=== PATIENT | male | born 1955 ===

== ENCOUNTER 2019-01-19 05:38 | Inpatient (IN) | payer BC, OTHER ==
[2019-01-19] MEDS ORDERED: Sodium Chloride 0.9% 1,000 ML IV STA ×2 (06:39→09:35)
--- NOTE | 2019-01-19 06:47 | ED PDOC ---
HPI: Abdomen Time Seen by Provider: 01/19/19 06:10 Chief Complaint (Nursing): Abdominal Pain Chief Complaint (Provider): Abdominal Pain History Per: Patient History/Exam Limitations: no limitations Onset/Duration Of Symptoms: Days (x3) Location Of Pain/Discomfort: Diffuse Associated Symptoms: Fever, Nausea, Vomiting, Diarrhea Additional Complaint(s): 63 years old male with history of hypertension and high cholesterol presents to ER for evaluation of nausea, vomiting, diarrhea and abdominal pain onset 3 days ago. Patient reports having an average of 3 episodes of each of watery diarrhea and non bloody, non bilious vomiting. He states he felt warm and thought he had a fever but never checked his temperature. Patient reports yesterday he was starting to improve but in the evening symptoms came back. He reports diffused abdominal pain but mostly in the upper abdomen. Patient states he has not drank in weeks and denies any abdominal surgeries. PMD: Kelly Wheeler Past Medical History Reviewed: Historical Data, Nursing Documentation, Vital Signs Vital Signs: Last Vital Signs Temp 99.0 F 01/19/19 05:51 Pulse 142 H 01/19/19 05:51 Resp 17 01/19/19 05:51 BP 111/62 01/19/19 05:51 Pulse Ox 97 01/19/19 05:51 - Medical History PMH: HTN, Hypercholesterolemia - Surgical History Surgical History: No Surg Hx - Family History Family History: States: Unknown Family Hx - Social History Current smoker - smoking cessation education provided: No (Former) Alcohol: Occasional Drugs: Denies - Immunization History Hx Tetanus Toxoid Vaccination: No - Home Medications Home Medications: Ambulatory Orders Medication Instructions Recorded Ibuprofen [Motrin] 600 mg PO Q6 PRN #20 tab 07/24/18 Sulfamethoxazole/Trimethoprim 1 tab PO BID #20 tab 07/24/18 [Bactrim DS 800 mg-160 mg] - Allergies Allergies/Adverse Reactions: Allergies Allergy/AdvReac Type Severity Reaction Status Date / Time No Known Allergies Allergy Verified 06/03/15 14:52 Review of Systems ROS Statement: Except As Marked, All Systems Reviewed And Found Negative Constitutional: Positive for: Fever Gastrointestinal: Positive for: Nausea, Vomiting, Abdominal Pain, Diarrhea Physical Exam - Reviewed Nursing Documentation Reviewed: Yes Vital Signs Reviewed: Yes - Physical Exam Appears: Positive for: Well, No Acute Distress Head Exam: Positive for: ATRAUMATIC, NORMOCEPHALIC Skin: Positive for: Normal Color, Warm, Dry Eye Exam: Positive for: Normal appearance, EOMI, PERRL ENT: Positive for: Other (Dry mucous membrane) Neck: Positive for: Normal, Painless ROM, Supple Cardiovascular/Chest: Positive for: Tachycardia Respiratory: Positive for: Normal Breath Sounds. Negative for: Respiratory Distress Gastrointestinal/Abdominal: Positive for: Normal Exam, Soft. Negative for: Tenderness, Guarding, Rebound Back: Positive for: Normal Inspection. Negative for: L CVA Tenderness, R CVA Tenderness Extremity: Positive for: Normal ROM. Negative for: Pedal Edema, Deformity Neurological/Psych: Positive for: Awake, Alert, Oriented (x3) - ECG O2 Sat by Pulse Oximetry: 97 (RA) Pulse Ox Interpretation: Normal Medical Decision Making Medical Decision Making: Time: 627 A/P: Abdominal pain with subjective fever --Differential includes but not limited to gastroenteritis, diverticulitis, colitis and appendicitis --VBG --ABD/Pelvis CT --EKG --CMP --Lipase --Urine dipstick --CBC --Zofran 4 mg IVP ---Blood culture --Urine culture --Urinalysis 0700 Patient signed out to Dr. Spaulding, pending labs and CT. Scribe Attestation: Documented by Alyce Salcedo, acting as a scribe for Sigifredo Calvo MD. Provider Scribe Attestation: All medical record entries made by the Scribe were at my direction and personally dictated by me. I have reviewed the chart and agree that the record accurately reflects my personal performance of the history, physical exam, medical decision making, and the department course for this patient. I have also personally directed, reviewed, and agree with the discharge instructions and disposition. Disposition - Clinical Impression Clinical Impression: Gastroenteritis - Patient ED Disposition Is Patient to be Admitted: Transfer of Care - Disposition Referrals: Kelly Wheeler MD [Primary Care Provider] - Disposition: Transfer of Care Disposition Time: 07:00 Condition: STABLE Forms: [employer] (Urdu) Patient Signed Over To: Kylah Spaulding (pending CT and labs)
[2019-01-19 07:17] LABS: VENOUS BLOOD GAS BASE EXCESS -1.8 mmol/L (0.0-2.0); VENOUS BLOOD GAS PCO2 35 mmHg (40-60); VENOUS BLOOD GAS PO2 42 mm/Hg (30-55); VENOUS BLOOD PH 7.41 (7.32-7.43)
[2019-01-19 07:39] LABS: BASO % 0.2 % (0.0-2.0); EOS % 0.1 % (0.0-4.0); LYMPH # 0.2 K/uL (1.0-4.3); LYMPH % 5.9 % (20.0-40.0); MEAN CELL VOLUME 90.3 fl (80.0-94.0); MEAN CORPUSCULAR HEMOGLOBIN 30.2 pg (27.0-31.0); MEAN CORPUSCULAR HGB CONC 33.4 g/dL (33.0-37.0); MEAN PLATELET VOLUME 8.5 fl (7.2-11.7); MONO # 0.1 K/uL (0.0-0.8); NEUT # 3.1 K/uL (1.8-7.0); NEUT % 90.8 % (50.0-75.0); PLATELET COUNT 219 K/uL (130-400); RBC 4.65 Mil/uL (4.40-5.90); RED CELL DISTRIBUTION WIDTH 13.6 % (11.5-14.5); WHITE BLOOD COUNT 3.4 K/uL (4.8-10.8)
[2019-01-19 07:45] LABS: URINE BILIRUBIN NEGATIVE (NEGATIVE); URINE BLOOD NEGATIVE (NEGATIVE); URINE CLARITY CLEAR (Clear); URINE COLOR YELLOW (YELLOW); URINE GLUCOSE (UA) 50 mg/dL (NEGATIVE); URINE LEUKOCYTE ESTERASE NEG Leu/uL (Negative); URINE PROTEIN NEGATIVE (NEGATIVE); URINE UROBILINOGEN 0.2-1.0 mg/dL (0.2-1.0)
[2019-01-19 07:54] LABS: ALB/GLOB RATIO 1.3 (1.0-2.1); ALBUMIN 3.7 g/dL (3.5-5.0); ALT/SGPT 40 U/L (21-72); AST/SGOT 36 U/L (17-59); BLOOD UREA NITROGEN 25 mg/dl (9-20); CALCIUM 8.8 mg/dL (8.4-10.2); GFR NON-AFRICAN AMERICAN > 60; LIPASE 154 U/L (23-300)
[2019-01-19] MEDS ORDERED: Iohexol 300 100 ML IJ ONE (08:01)
--- NOTE | 2019-01-19 08:08 | ED PDOC ---
- Laboratory Results Result Diagrams: 01/21/19 08:10 01/21/19 08:10 Lab Results: pO2 42 mm/Hg (30-55) 01/19/19 06:39 VBG pH 7.41 (7.32-7.43) 01/19/19 06:39 VBG pCO2 35 mmHg (40-60) L 01/19/19 06:39 VBG HCO3 23.0 mmol/L 01/19/19 06:39 VBG Total CO2 23.3 mmol/L (22-28) 01/19/19 06:39 VBG O2 Sat (Calc) 84.0 % (40-65) H 01/19/19 06:39 VBG Base Excess -1.8 mmol/L (0.0-2.0) L 01/19/19 06:39 VBG Potassium 3.3 mmol/L (3.6-5.2) L 01/19/19 06:39 Sodium 138.0 mmol/L (132-148) 01/19/19 06:39 Chloride 105.0 mmol/L (98-107) 01/19/19 06:39 Glucose 115 mg/dL (75-110) H 01/19/19 06:39 Lactate 2.2 mmol/L (0.7-2.1) H 01/19/19 06:39 FiO2 21.0 % 01/19/19 06:39 Total Bilirubin 1.6 mg/dl (0.2-1.3) H 01/19/19 07:10 AST 36 U/L (17-59) 01/19/19 07:10 ALT 40 U/L (21-72) 01/19/19 07:10 Alkaline Phosphatase 80 U/L (38-126) 01/19/19 07:10 Total Protein 6.6 G/DL (6.3-8.2) 01/19/19 07:10 Albumin 3.7 g/dL (3.5-5.0) 01/19/19 07:10 Globulin 2.9 gm/dL (2.2-3.9) 01/19/19 07:10 Albumin/Globulin Ratio 1.3 (1.0-2.1) 01/19/19 07:10 Lipase 154 U/L (23-300) 01/19/19 07:10 Urine Color Yellow (YELLOW) 01/19/19 07:10 Urine Clarity Clear (Clear) 01/19/19 07:10 Urine pH 6.0 (5.0-8.0) 01/19/19 07:10 Ur Specific [place] 1.017 (1.003-1.030) 01/19/19 07:10 Urine Protein Negative mg/dL (NEGATIVE) 01/19/19 07:10 Urine Glucose (UA) 50 mg/dL (NEGATIVE) 01/19/19 07:10 Urine Ketones Trace mg/dL (NEGATIVE) 01/19/19 07:10 Urine Blood Negative (NEGATIVE) 01/19/19 07:10 Urine Nitrate Negative (NEGATIVE) 01/19/19 07:10 Urine Bilirubin Negative (NEGATIVE) 01/19/19 07:10 Urine Urobilinogen 0.2-1.0 mg/dL (0.2-1.0) 01/19/19 07:10 Ur Leukocyte Esterase Neg Tracee/uL (Negative) 01/19/19 07:10 Urine RBC (Auto) < 1 /hpf (0-3) 01/19/19 07:10 Urine Microscopic WBC 1 /hpf (0-5) 01/19/19 07:10 - ECG O2 Sat by Pulse Oximetry: 97 (RA) Medical Decision Making Medical Decision Making: Time: Initial Impression: Initial Plan: Signed out by Dr. Calvo to Dr. Spaulding. Presenting with abdominal pain and fever. Pending UA and CT results. Following imaging and labs results and reevaluate for this position. Scribe Attestation: Documented by Cara Hernandes, acting as a scribe for Kylah Spaulding Provider Scribe Attestation: All medical record entries made by the Scribe were at my direction and personally dictated by me. I have reviewed the chart and agree that the record accurately reflects my personal performance of the history, physical exam, medical decision making, and the department course for this patient. I have also personally directed, reviewed, and agree with the discharge instructions and disposition. 1017 FINDINGS: LOWER THORAX: Left lower lobe and lingular pneumonia identified. Small hiatal hernia. Borderline cardiomegaly. LIVER: Unremarkable. No gross lesion or ductal dilatation. GALLBLADDER AND BILE DUCTS: Distended but otherwise unremarkable appearing gallbladder. No radiodense cholelithiasis. PANCREAS: Unremarkable. No gross lesion or ductal dilatation. SPLEEN: Unremarkable. ADRENALS: Normal bilaterally. KIDNEYS AND URETERS: 2.2 cm cyst lower pole right kidney with the bilateral kidneys otherwise unremarkable appearing. No hydronephrosis or radiodense urolithiasis identified. VASCULATURE: Unremarkable. No aortic aneurysm. No aortic atherosclerotic calcification or mural plaque present. BOWEL: Unremarkable. No obstruction. No gross mural thickening. Evaluation of the gastrointestinal tract is limited due to the lack of oral contrast administration. APPENDIX: Normal appendix. PERITONEUM: Status post prior umbilical hernia repair with mesh in situ. No free fluid. No free air. LYMPH NODES: Unremarkable. No enlarged lymph nodes. BLADDER: Urinary bladder is not fully decompressed and evaluation the wall is compromised. Limited cystitis not completely excluded. REPRODUCTIVE: Unremarkable. BONES: No acute fracture. OTHER FINDINGS: None. IMPRESSION: No definitive acute abdominal or pelvic findings. Simple cyst lower pole right kidney. Prior herniorrhaphy umbilical/periumbilical region with mesh in situ. Incidental pneumonia left lower lobe and lingula. 1030 CT scan shows incidental pnemonia. CXR ordered. Second liter of IV fluids given. Repeat Lactate level scheduled for 11:15am. Pt meets sepsis criteria but not severe sepsis. Pt to be admitted to Dr. Spears (Dr. Spears has been paged). Pt with improved heart rate and remains afebrile. Disposition - Clinical Impression Clinical Impression: Gastroenteritis - POA Present On Arrival: None - Disposition Disposition: Admitted as In-Patient Disposition Time: 10:30 Condition: STABLE
[2019-01-19 08:25] LABS: BANDS 20 % (0-2); LYMPHOCYTE 8 % (20-50); NEUTROPHIL 72 % (42-75); PLATELET ESTIMATE NORMAL (NORMAL); TOTAL CELLS COUNTED 100
[2019-01-19 08:27] LABS: GIANT PLATELETS PRESENT; LARGE PLATELETS PRESENT
--- NOTE | 2019-01-19 09:47 | CT ---
Date of service: 01/19/2019 PROCEDURE: CT Abdomen and Pelvis with contrast HISTORY: diffuse abd pain, nausea, vomiting COMPARISON: None. TECHNIQUE: Following the intravenous administration of iodinated contrast material, a CT examination of the abdomen and pelvis was performed from the domes of the diaphragms to the symphysis pubis with reformatted datasets provided in axial, sagittal and coronal planes. Oral contrast was not administered as per referring physician request. Contrast dose: Omnipaque 300, 95 cc Radiation dose: Total exam DLP = 888.81 mGy-cm. This CT exam was performed using one or more of the following dose reduction techniques: Automated exposure control, adjustment of the mA and/or kV according to patient size, and/or use of iterative reconstruction technique. FINDINGS: LOWER THORAX: Left lower lobe and lingular pneumonia identified. Small hiatal hernia. Borderline cardiomegaly. LIVER: Unremarkable. No gross lesion or ductal dilatation. GALLBLADDER AND BILE DUCTS: Distended but otherwise unremarkable appearing gallbladder. No radiodense cholelithiasis. PANCREAS: Unremarkable. No gross lesion or ductal dilatation. SPLEEN: Unremarkable. ADRENALS: Normal bilaterally. KIDNEYS AND URETERS: 2.2 cm cyst lower pole right kidney with the bilateral kidneys otherwise unremarkable appearing. No hydronephrosis or radiodense urolithiasis identified. VASCULATURE: Unremarkable. No aortic aneurysm. No aortic atherosclerotic calcification or mural plaque present. BOWEL: Unremarkable. No obstruction. No gross mural thickening. Evaluation of the gastrointestinal tract is limited due to the lack of oral contrast administration. APPENDIX: Normal appendix. PERITONEUM: Status post prior umbilical hernia repair with mesh in situ. No free fluid. No free air. LYMPH NODES: Unremarkable. No enlarged lymph nodes. BLADDER: Urinary bladder is not fully decompressed and evaluation the wall is compromised. Limited cystitis not completely excluded. REPRODUCTIVE: Unremarkable. BONES: No acute fracture. OTHER FINDINGS: None. IMPRESSION: No definitive acute abdominal or pelvic findings. Simple cyst lower pole right kidney. Prior herniorrhaphy umbilical/periumbilical region with mesh in situ. Incidental pneumonia left lower lobe and lingula.
[2019-01-19] MEDS ORDERED: Azithromycin 500 MG in Sodium Chloride 0.9% 250 ML IVPB STA (10:54)
[2019-01-19] MEDS ORDERED: cefTRIAXone (Rocephin) 1 gm Inj ONE (11:22)
[2019-01-19] MEDS ORDERED: Azithromycin 500 MG IV IVPB ONE (11:23)
--- NOTE | 2019-01-19 13:40 | CARD ---
APPROVED REPORT Date of service: 01/19/2019 EKG Measurement Heart [id number] <Conclusion> Sinus tachycardia Inferior infarct, age undetermined Abnormal ECG
--- NOTE | 2019-01-19 14:53 | RAD ---
Date of service: 01/19/2019 HISTORY: cough COMPARISON: No prior. TECHNIQUE: Chest PA and lateral views FINDINGS: LUNGS: Prominent markings at the mid to inferior left lung zone are identified suspicious for granulomatous disease, chronic. Trace infiltrates not excluded here. Right chest is clear. PLEURA: No significant pleural effusion identified. No pneumothorax apparent. CARDIOVASCULAR: No aortic atherosclerotic calcification present. Normal cardiac size. No pulmonary vascular congestion. OSSEOUS STRUCTURES: No significant abnormalities. VISUALIZED UPPER ABDOMEN: Normal. OTHER FINDINGS: None. IMPRESSION: Trace mid to inferior left-sided pulmonary infiltrate is not excluded. Questionable granulomatous changes are suggested here instead a difficult to differentiate from the former. CT can differentiate if clinically warranted. Exam otherwise unremarkable.
[2019-01-19] MEDS: Sodium Chloride 0.9% 1,000 ML IV SCH (20:20)
[2019-01-20] MEDS: Sodium Chloride 0.9% 1,000 ML IV SCH ×3 (06:15→22:11)
[2019-01-20 06:38] LABS: HEMOGLOBIN 12.5 g/dL (12.0-18.0); MEAN CELL VOLUME 90.8 fl (80.0-94.0); MEAN CORPUSCULAR HEMOGLOBIN 30.3 pg (27.0-31.0); MEAN CORPUSCULAR HGB CONC 33.4 g/dL (33.0-37.0); RBC 4.12 Mil/uL (4.40-5.90); RED CELL DISTRIBUTION WIDTH 13.6 % (11.5-14.5); WHITE BLOOD COUNT 15.5 K/uL (4.8-10.8)
[2019-01-20 06:52] LABS: ALB/GLOB RATIO 1.2 (1.0-2.1); ALBUMIN 3.4 g/dL (3.5-5.0); ALT/SGPT 34 U/L (21-72); AST/SGOT 32 U/L (17-59); BLOOD UREA NITROGEN 12 mg/dl (9-20); CALCIUM 8.4 mg/dL (8.4-10.2); GFR NON-AFRICAN AMERICAN > 60
[2019-01-20] MEDS: Enoxaparin 40 mg Syringe SC SCH (08:25)
[2019-01-20] MEDS: Azithromycin 500 MG in Sodium Chloride 0.9% 250 ML IVPB SCH (08:26)
--- NOTE | 2019-01-20 11:41 | CP.PCM.CON ---
History of Present Illness - History of Present Illness History of Present Illness: Infectious Disease Consultation Note- Asked to see this patient at the request of for pneumonia. HPI- Oh is a 63 year old male with PMH of HTN and HLD who came to ed for c/o abdominal pain and nausea nd vomiting adn diarrhea for 2 days Patient reports having an average of 3 episodes of each of watery diarrhea and non bloody, non bilious vomiting . he also states he felt warm . denies any cough or sob. On admission he had abd ct done which incidentally showel LL pneumonia, no abdominal findings as per report. Pt. states he feels slightly better today. no abd pain today. denies any dysurea, denies any chest pain denies any recent travel denies any sick contacts Review of Systems - Review of Systems Review of Systems: ROS- as stated in HPI Past Patient History - Infectious Disease Hx of Infectious Diseases: None - Past Medical History & Family History Past Medical History?: Yes - Past Social History Smoking Status: Never Smoked Home Situation {Lives}: With Family - CARDIAC Hx Cardiac Disorders: Yes Hx Hypercholesterolemia: Yes Hx Hypertension: Yes - PULMONARY Hx Respiratory Disorders: No - NEUROLOGICAL Hx Neurological Disorder: No - HEENT Hx HEENT Problems: No - RENAL Hx Chronic Kidney Disease: No - ENDOCRINE/METABOLIC Hx Endocrine Disorders: No - HEMATOLOGICAL/ONCOLOGICAL Hx Blood Disorders: No - INTEGUMENTARY Hx Dermatological Problems: No - MUSCULOSKELETAL/RHEUMATOLOGICAL Hx Musculoskeletal Disorders: No Hx Falls: No Other/Comment: Right Knee injury at work - GASTROINTESTINAL Hx Gastrointestinal Disorders: Yes Hx Fatty Liver Disease: Yes Hx Gastritis: Yes - GENITOURINARY/GYNECOLOGICAL Hx Genitourinary Disorders: Yes Other/Comment: Urinary retention - PSYCHIATRIC Hx Psychophysiologic Disorder: No Hx Substance Use: No - SURGICAL HISTORY Hx Surgeries: Yes Hx Herniorrhaphy: Yes - ANESTHESIA Hx Anesthesia: Yes Hx Anesthesia Reactions: No Hx Malignant Hyperthermia: No Has any member of the family had a problem w/ anesthesia?: No Meds Allergies/Adverse Reactions: Allergies Allergy/AdvReac Type Severity Reaction Status Date / Time No Known Allergies Allergy Verified 06/03/15 14:52 - Medications Medications: Current Medications Acetaminophen (Tylenol 325mg Tab) 650 mg PO Q4 PRN PRN Reason: Fever >100.4 F Last Admin: 01/19/19 18:17 Dose: 650 mg Aspirin (Ecotrin) 81 mg PO DAILY [facility] Last Admin: 01/20/19 08:25 Dose: 81 mg Atorvastatin Calcium (Lipitor) 10 mg PO DAILY [facility] Last Admin: 01/20/19 08:25 Dose: 10 mg Cyanocobalamin (Vitamin B12 1000 Mcg Tab) 1,000 mcg PO DAILY [facility] Last Admin: 01/20/19 08:25 Dose: 1,000 mcg Enoxaparin Sodium (Lovenox) 40 mg SC DAILY [facility]; Protocol Last Admin: 01/20/19 08:25 Dose: 40 mg Famotidine (Pepcid) 20 mg PO BID [facility] Last Admin: 01/20/19 08:25 Dose: 20 mg Ceftriaxone Sodium 1 gm/ (Sodium Chloride) 100 mls @ 100 mls/hr IVPB DAILY [facility]; Protocol Last Admin: 01/20/19 08:24 Dose: 100 mls/hr Azithromycin 500 mg/ Sodium (Chloride) 250 mls @ 250 mls/hr IVPB DAILY [facility]; Protocol Last Admin: 01/20/19 08:26 Dose: 250 mls/hr Sodium Chloride (Sodium Chloride 0.9%) 1,000 mls @ 100 mls/hr IV .Q10H [facility] Stop: 01/21/19 20:02 Last Admin: 01/20/19 06:15 Dose: 100 mls/hr Losartan Potassium (Cozaar) 50 mg PO DAILY [facility] Last Admin: 01/20/19 08:26 Dose: 50 mg Physical Exam - Constitutional Appears: No Acute Distress - Head Exam Head Exam: ATRAUMATIC - Eye Exam Eye Exam: EOMI, PERRL - ENT Exam ENT Exam: Normal Oropharynx - Neck Exam Neck exam: Positive for: Full Rom - Respiratory Exam Respiratory Exam: NORMAL BREATHING PATTERN Additional comments: no wheezing decreased breath sounds at bases - Cardiovascular Exam Cardiovascular Exam: RRR, +S1, +S2 - GI/Abdominal Exam GI & Abdominal Exam: Normal Bowel Sounds, Soft Additional comments: NT, ND - Extremities Exam Extremities exam: Positive for: normal inspection - Neurological Exam Neurological exam: Alert, Oriented x3 Results - Vital Signs Recent Vital Signs: Last Vital Signs Temp 98.4 F 01/20/19 09:00 Pulse 87 01/20/19 09:00 Resp 20 01/20/19 09:00 BP 114/69 01/20/19 09:00 Pulse Ox 94 L 01/20/19 09:00 - Labs Result Diagrams: 01/20/19 05:15 01/20/19 05:15 Labs: Laboratory Results - last 24 hr 01/19/19 01/20/19 01/20/19 11:30 05:15 05:15 WBC 15.5 H D RBC 4.12 L Hgb 12.5 Hct 37.4 MCV 90.8 MCH 30.3 MCHC 33.4 RDW 13.6 Plt Count 186 Sodium 135 Potassium 3.3 L Chloride 106 Carbon Dioxide 19 L Anion Gap 13 BUN 12 Creatinine 0.7 L Est GFR ( Amer) > 60 Est GFR (Non-Af Amer) > 60 Random Glucose 90 Lactic Acid 1.3 Calcium 8.4 Total Bilirubin 1.3 AST 32 ALT 34 Alkaline Phosphatase 54 Total Protein 6.3 Albumin 3.4 L Globulin 2.8 Albumin/Globulin Ratio 1.2 Microbiology 01/19/19 07:10 Urine Random Urine Culture - Final Strep Agalactiae Group B 01/19/19 07:10 Blood Blood Culture - Preliminary NO GROWTH AFTER 24 HOURS Accession No. : [id number] Patient Name / ID : JESSICA GALARZA / [id number] Exam Date : 01/19/2019 09:58:43 ( Approved ) Study Comment : Sex / Age : M / 63Y Creator : Chao Grove MD Dictator : Chao Grove MD Spindraw Operator : [employer] Instructor : Chao Grove MD Approver2 : Report Date : 01/19/2019 14:49:23 My Comment : Date of service: 01/19/2019 HISTORY: cough COMPARISON: No prior. TECHNIQUE: Chest PA and lateral views FINDINGS: LUNGS: Prominent markings at the mid to inferior left lung zone are identified suspicious for granulomatous disease, chronic. Trace infiltrates not excluded here. Right chest is clear. PLEURA: No significant pleural effusion identified. No pneumothorax apparent. CARDIOVASCULAR: No aortic atherosclerotic calcification present. Normal cardiac size. No pulmonary vascular congestion. OSSEOUS STRUCTURES: No significant abnormalities. VISUALIZED UPPER ABDOMEN: Normal. OTHER FINDINGS: None. IMPRESSION: Trace mid to inferior left-sided pulmonary infiltrate is not excluded. Questionable granulomatous changes are suggested here instead a difficult to differentiate from the former. CT can differentiate if clinically warranted. Exam otherwise unremarkable. Accession No. : [id number] Patient Name / ID : JESSICA GALARZA / [id number] Exam Date : 01/19/2019 07:57:18 ( Approved ) Study Comment : Sex / Age : M / 63Y Creator : Chao Grove MD Dictator : Chao Grove MD Spindraw Operator : [employer] Instructor : Chao Grove MD Approver2 : Report Date : 01/19/2019 09:44:04 My Comment : Date of service: 01/19/2019 PROCEDURE: CT Abdomen and Pelvis with contrast HISTORY: diffuse abd pain, nausea, vomiting COMPARISON: None. TECHNIQUE: Following the intravenous administration of iodinated contrast material, a CT examination of the abdomen and pelvis was performed from the domes of the diap hragms to the symphysis pubis with reformatted datasets provided in axial, sagittal and coronal planes. Oral contrast was not administered as per referring physician request. Contrast dose: Omnipaque 300, 95 cc Radiation dose: Total exam DLP = 888.81 mGy-cm. This CT exam was performed using one or more of the following dose reduction techniques: Automated exposure control, adjustment of the mA and/or kV according to patient size, and/or use of iterative reconstruction technique. FINDINGS: LOWER THORAX: Left lower lobe and lingular pneumonia identified. Small hiatal hernia. Borderline cardiomegaly. LIVER: Unremarkable. No gross lesion or ductal dilatation. GALLBLADDER AND BILE DUCTS: Distended but otherwise unremarkable appearing gallbladder. No radiodense cholelithiasis. PANCREAS: Unremarkable. No gross lesion or ductal dilatation. SPLEEN: Unremarkable. ADRENALS: Normal bilaterally. KIDNEYS AND URETERS: 2.2 cm cyst lower pole right kidney with the bilateral kidneys otherwise unremarkable appearing. No hydronephrosis or radiodense urolithiasis identified. VASCULATURE: Unremarkable. No aortic aneurysm. No aortic atherosclerotic calcification or mural plaque present. BOWEL: Unremarkable. No obstruction. No gross mural thickening. Evaluation of the gastrointestinal tract is limited due to the lack of oral contrast administration. APPENDIX: Normal appendix. PERITONEUM: Status post prior umbilical hernia repair with mesh in situ. No free fluid. No free air. LYMPH NODES: Unremarkable. No enlarged lymph nodes. BLADDER: Urinary bladder is not fully decompressed and evaluation the wall is compromised. Limited cystitis not completely excluded. REPRODUCTIVE: Unremarkable. BONES: No acute fracture. OTHER FINDINGS: None. IMPRESSION: No definitive acute abdominal or pelvic findings. Simple cyst lower pole right kidney. Prior herniorrhaphy umbilical/periumbilical region with mesh in situ. Incidental pneumonia left lower lobe and lingula. Assessment & Plan (1) Gastroenteritis Status: Acute (2) Pneumonia Status: Acute - Assessment and Plan (Free Text) Assessment: A/P- 63 year old male with HTN and HLD admitted with gastroenteritis symptoms and found to have LLL pneumonia on ct. afebrile + leukocytosis with left shift present. PLan- check sputum cx. check Blood cx x 2. check urine legionella Ag. check mycoplasma serology. check stool cx. check stool O and P. advise to continue with IV ceftriaxone adn zithrmax that was already started by the admitting doc as this is most likely CAP. Thank you for allowing me to take part in the care of this patient.
--- NOTE | 2019-01-20 16:02 | CP.PCM.HP ---
Past Patient History - Infectious Disease Hx of Infectious Diseases: None - Past Medical History & Family History Past Medical History?: Yes - Past Social History Smoking Status: Never Smoked Home Situation {Lives}: With Family - CARDIAC Hx Cardiac Disorders: Yes Hx Hypercholesterolemia: Yes Hx Hypertension: Yes - PULMONARY Hx Respiratory Disorders: No - NEUROLOGICAL Hx Neurological Disorder: No - HEENT Hx HEENT Problems: No - RENAL Hx Chronic Kidney Disease: No - ENDOCRINE/METABOLIC Hx Endocrine Disorders: No - HEMATOLOGICAL/ONCOLOGICAL Hx Blood Disorders: No - INTEGUMENTARY Hx Dermatological Problems: No - MUSCULOSKELETAL/RHEUMATOLOGICAL Hx Musculoskeletal Disorders: No Hx Falls: No Other/Comment: Right Knee injury at work - GASTROINTESTINAL Hx Gastrointestinal Disorders: Yes Hx Fatty Liver Disease: Yes Hx Gastritis: Yes - GENITOURINARY/GYNECOLOGICAL Hx Genitourinary Disorders: Yes Other/Comment: Urinary retention - PSYCHIATRIC Hx Psychophysiologic Disorder: No Hx Substance Use: No - SURGICAL HISTORY Hx Surgeries: Yes Hx Herniorrhaphy: Yes - ANESTHESIA Hx Anesthesia: Yes Hx Anesthesia Reactions: No Hx Malignant Hyperthermia: No Has any member of the family had a problem w/ anesthesia?: No Meds Allergies/Adverse Reactions: Allergies Allergy/AdvReac Type Severity Reaction Status Date / Time No Known Allergies Allergy Verified 06/03/15 14:52 Results - Vital Signs Recent Vital Signs: Last Vital Signs Temp 98.4 F 01/20/19 09:00 Pulse 87 01/20/19 09:00 Resp 20 01/20/19 09:00 BP 114/69 01/20/19 09:00 Pulse Ox 94 L 01/20/19 09:00 - Labs Result Diagrams: 01/20/19 05:15 01/20/19 05:15 Labs: Laboratory Results - last 24 hr 01/20/19 01/20/19 05:15 05:15 WBC 15.5 H D RBC 4.12 L Hgb 12.5 Hct 37.4 MCV 90.8 MCH 30.3 MCHC 33.4 RDW 13.6 Plt Count 186 Sodium 135 Potassium 3.3 L Chloride 106 Carbon Dioxide 19 L Anion Gap 13 BUN 12 Creatinine 0.7 L Est GFR ( Amer) > 60 Est GFR (Non-Af Amer) > 60 Random Glucose 90 Calcium 8.4 Total Bilirubin 1.3 AST 32 ALT 34 Alkaline Phosphatase 54 Total Protein 6.3 Albumin 3.4 L Globulin 2.8 Albumin/Globulin Ratio 1.2 Assessment & Plan (1) Pneumonia Status: Acute
[2019-01-20] MEDS ORDERED: Potassium Chloride 20 mEq/15 ml LIQ UD PO STA (16:03)
[2019-01-21] MEDS: Sodium Chloride 0.9% 1,000 ML IV SCH ×3 (06:00→21:46)
[2019-01-21 07:09] LABS: BASO % 0.2 % (0.0-2.0); EOS % 0.3 % (0.0-4.0); HEMOGLOBIN 12.3 g/dL (12.0-18.0); LYMPH # 1.2 K/uL (1.0-4.3); LYMPH % 9.3 % (20.0-40.0); MEAN CELL VOLUME 89.6 fl (80.0-94.0); MEAN CORPUSCULAR HEMOGLOBIN 30.4 pg (27.0-31.0); MEAN PLATELET VOLUME 8.3 fl (7.2-11.7); MONO # 0.6 K/uL (0.0-0.8); NEUT # 10.6 K/uL (1.8-7.0); NEUT % 85.2 % (50.0-75.0); NRBC % 0.1 % (0.0-0.0); RBC 4.04 Mil/uL (4.40-5.90); RED CELL DISTRIBUTION WIDTH 13.2 % (11.5-14.5); WHITE BLOOD COUNT 12.4 K/uL (4.8-10.8)
[2019-01-21] MEDS: Enoxaparin 40 mg Syringe SC SCH (08:33)
[2019-01-21] MEDS: Azithromycin 500 MG in Sodium Chloride 0.9% 250 ML IVPB SCH (08:34)
[2019-01-21 08:51] LABS: BASO % 0.1 % (0.0-2.0); EOS % 0.4 % (0.0-4.0); HEMOGLOBIN 12.2 g/dL (12.0-18.0); LYMPH # 1.4 K/uL (1.0-4.3); LYMPH % 11.2 % (20.0-40.0); MEAN CELL VOLUME 90.2 fl (80.0-94.0); MEAN CORPUSCULAR HEMOGLOBIN 30.1 pg (27.0-31.0); MEAN CORPUSCULAR HGB CONC 33.4 g/dL (33.0-37.0); MEAN PLATELET VOLUME 8.1 fl (7.2-11.7); MONO # 0.7 K/uL (0.0-0.8); MONO % 5.4 % (0.0-10.0); NEUT # 10.7 K/uL (1.8-7.0); NEUT % 82.9 % (50.0-75.0); RBC 4.07 Mil/uL (4.40-5.90); RED CELL DISTRIBUTION WIDTH 13.2 % (11.5-14.5)
[2019-01-21 09:41] LABS: ALB/GLOB RATIO 1.2 (1.0-2.1); ALBUMIN 3.5 g/dL (3.5-5.0); ALT/SGPT 32 U/L (21-72); AST/SGOT 25 U/L (17-59); BLOOD UREA NITROGEN 11 mg/dl (9-20); CALCIUM 8.7 mg/dL (8.4-10.2); GFR NON-AFRICAN AMERICAN > 60
[2019-01-21] MEDS ORDERED: Potassium Chloride 20 mEq ER Tab PO ONE (10:28)
--- NOTE | 2019-01-21 11:02 | CP.PCM.PN ---
Objective - Vital Signs/Intake and Output Vital Signs (last 24 hours): Temp Pulse Resp BP Pulse Ox 97.7 F 81 20 141/82 97 01/21/19 08:15 01/21/19 08:15 01/21/19 08:15 01/21/19 08:15 01/21/19 10:30 - Medications Medications: Current Medications Acetaminophen (Tylenol 325mg Tab) 650 mg PO Q4 PRN PRN Reason: Fever >100.4 F Last Admin: 01/19/19 18:17 Dose: 650 mg Aspirin (Ecotrin) 81 mg PO DAILY [facility] Last Admin: 01/21/19 08:33 Dose: 81 mg Atorvastatin Calcium (Lipitor) 10 mg PO DAILY [facility] Last Admin: 01/21/19 08:34 Dose: 10 mg Cyanocobalamin (Vitamin B12 1000 Mcg Tab) 1,000 mcg PO DAILY [facility] Last Admin: 01/21/19 08:34 Dose: 1,000 mcg Enoxaparin Sodium (Lovenox) 40 mg SC DAILY [facility]; Protocol Last Admin: 01/21/19 08:33 Dose: 40 mg Famotidine (Pepcid) 20 mg PO BID [facility] Last Admin: 01/21/19 08:33 Dose: 20 mg Ceftriaxone Sodium 1 gm/ (Sodium Chloride) 100 mls @ 100 mls/hr IVPB DAILY [facility]; Protocol Last Admin: 01/21/19 08:32 Dose: 100 mls/hr Azithromycin 500 mg/ Sodium (Chloride) 250 mls @ 250 mls/hr IVPB DAILY [facility]; Protocol Last Admin: 01/21/19 08:34 Dose: 250 mls/hr Sodium Chloride (Sodium Chloride 0.9%) 1,000 mls @ 125 mls/hr IV .Q8H [facility] Stop: 01/23/19 20:02 Last Admin: 01/21/19 06:00 Dose: 125 mls/hr Losartan Potassium (Cozaar) 50 mg PO DAILY [facility] Last Admin: 01/21/19 08:33 Dose: 50 mg - Labs Labs: 01/21/19 08:10 01/21/19 08:10 Assessment and Plan (1) Pneumonia Status: Acute
[2019-01-21 16:02] VITALS: O2SAT 96
[2019-01-22] MEDS: Sodium Chloride 0.9% 1,000 ML IV SCH (05:42)
[2019-01-22 08:39] VITALS: BP 145/91; PULSE 80; RESP 20; TEMP 98.1
--- NOTE | 2019-01-22 09:58 | CP.PCM.PN ---
Subjective - Date & Time of Evaluation Date of Evaluation: 01/22/19 Time of Evaluation: 09:58 - Subjective Subjective: ID Note- Patient seen and examined today. Pt. states he feels better. denies any fever. Objective - Vital Signs/Intake and Output Vital Signs (last 24 hours): Temp Pulse Resp BP Pulse Ox 98.1 F 80 20 145/91 H 96 01/22/19 08:38 01/22/19 08:38 01/22/19 08:38 01/22/19 08:38 01/22/19 08:38 - Medications Medications: Current Medications Acetaminophen (Tylenol 325mg Tab) 650 mg PO Q4 PRN PRN Reason: Fever >100.4 F Last Admin: 01/19/19 18:17 Dose: 650 mg Aspirin (Ecotrin) 81 mg PO DAILY [facility] Last Admin: 01/21/19 08:33 Dose: 81 mg Atorvastatin Calcium (Lipitor) 10 mg PO DAILY [facility] Last Admin: 01/21/19 08:34 Dose: 10 mg Cyanocobalamin (Vitamin B12 1000 Mcg Tab) 1,000 mcg PO DAILY [facility] Last Admin: 01/21/19 08:34 Dose: 1,000 mcg Enoxaparin Sodium (Lovenox) 40 mg SC DAILY [facility]; Protocol Last Admin: 01/21/19 08:33 Dose: 40 mg Famotidine (Pepcid) 20 mg PO BID [facility] Last Admin: 01/21/19 17:02 Dose: 20 mg Ceftriaxone Sodium 1 gm/ (Sodium Chloride) 100 mls @ 100 mls/hr IVPB DAILY [facility]; Protocol Last Admin: 01/21/19 08:32 Dose: 100 mls/hr Azithromycin 500 mg/ Sodium (Chloride) 250 mls @ 250 mls/hr IVPB DAILY [facility]; Protocol Last Admin: 01/21/19 08:34 Dose: 250 mls/hr Sodium Chloride (Sodium Chloride 0.9%) 1,000 mls @ 125 mls/hr IV .Q8H [facility] Stop: 01/23/19 20:02 Last Admin: 01/22/19 05:42 Dose: 125 mls/hr Losartan Potassium (Cozaar) 50 mg PO DAILY [facility] Last Admin: 01/21/19 08:33 Dose: 50 mg - Labs Labs: - Additional Findings Additional findings: Physical Exam - Constitutional Appears: No Acute Distress - Head Exam Head Exam: ATRAUMATIC - Eye Exam Eye Exam: EOMI, PERRL - ENT Exam ENT Exam: Normal Oropharynx - Neck Exam Neck exam: Positive for: Full Rom - Respiratory Exam Respiratory Exam: NORMAL BREATHING PATTERN Additional comments: no wheezing better aeration b/l - Cardiovascular Exam Cardiovascular Exam: RRR, +S1, +S2 - GI/Abdominal Exam GI & Abdominal Exam: Normal Bowel Sounds, Soft Additional comments: NT, ND - Extremities Exam Extremities exam: Positive for: normal inspection - Neurological Exam Neurological exam: Alert, Oriented x 3 Laboratory Results - last 72 hr 01/20/19 01/20/19 01/20/19 05:15 05:15 15:42 WBC 15.5 H D RBC 4.12 L Hgb 12.5 Hct 37.4 MCV 90.8 MCH 30.3 MCHC 33.4 RDW 13.6 Plt Count 186 MPV Neut % (Auto) Lymph % (Auto) [place] % (Auto) Eos % (Auto) Baso % (Auto) Neut # (Auto) Lymph # (Auto) [place] # (Auto) Eos # (Auto) Baso # (Auto) Sodium 135 Potassium 3.3 L Chloride 106 Carbon Dioxide 19 L Anion Gap 13 BUN 12 Creatinine 0.7 L Est GFR ( Amer) > 60 Est GFR (Non-Af Amer) > 60 Random Glucose 90 Calcium 8.4 Phosphorus Magnesium Total Bilirubin 1.3 AST 32 ALT 34 Alkaline Phosphatase 54 Total Protein 6.3 Albumin 3.4 L Globulin 2.8 Albumin/Globulin Ratio 1.2 Mycoplasma pneumon IgM Negative 01/21/19 01/21/19 01/21/19 06:20 08:10 08:10 WBC 12.4 H 13.0 H RBC 4.04 L 4.07 L Hgb 12.3 12.2 Hct 36.2 36.7 MCV 89.6 90.2 MCH 30.4 30.1 MCHC 34.0 33.4 RDW 13.2 13.2 Plt Count 199 198 MPV 8.3 8.1 Neut % (Auto) 85.2 H 82.9 H Lymph % (Auto) 9.3 L 11.2 L [place] % (Auto) 5.0 5.4 Eos % (Auto) 0.3 0.4 Baso % (Auto) 0.2 0.1 Neut # (Auto) 10.6 H 10.7 H Lymph # (Auto) 1.2 1.4 [place] # (Auto) 0.6 0.7 Eos # (Auto) 0.0 0.0 Baso # (Auto) 0.0 0.0 Sodium 137 Potassium 3.5 L Chloride 107 Carbon Dioxide 20 L Anion Gap 14 BUN 11 Creatinine 0.8 Est GFR ( Amer) > 60 Est GFR (Non-Af Amer) > 60 Random Glucose 114 H Calcium 8.7 Phosphorus 2.9 Magnesium 2.0 Total Bilirubin 1.0 AST 25 ALT 32 Alkaline Phosphatase 65 Total Protein 6.4 Albumin 3.5 Globulin 2.9 Albumin/Globulin Ratio 1.2 Mycoplasma pneumon IgM 01/22/19 12:15 WBC 8.2 RBC 4.14 L Hgb 12.6 Hct 37.3 MCV 90.0 MCH 30.5 MCHC 33.9 RDW 13.5 Plt Count 239 MPV Neut % (Auto) Lymph % (Auto) [place] % (Auto) Eos % (Auto) Baso % (Auto) Neut # (Auto) Lymph # (Auto) [place] # (Auto) Eos # (Auto) Baso # (Auto) Sodium Potassium Chloride Carbon Dioxide Anion Gap BUN Creatinine Est GFR ( Amer) Est GFR (Non-Af Amer) Random Glucose Calcium Phosphorus Magnesium Total Bilirubin AST ALT Alkaline Phosphatase Total Protein Albumin Globulin Albumin/Globulin Ratio Mycoplasma pneumon IgM Microbiology 01/20/19 14:26 Stool Ova and Parasite Concentrate Exam - Final 01/19/19 07:10 Blood Blood Culture - Preliminary NO GROWTH AFTER 3 DAYS 01/20/19 15:52 Blood-Venous Blood Culture - Preliminary NO GROWTH AFTER 24 HOURS 01/20/19 15:42 Blood-Venous Blood Culture - Preliminary NO GROWTH AFTER 24 HOURS 01/19/19 07:10 Urine Random Urine Culture - Final Strep Agalactiae Group B Accession No. : [id number] Patient Name / ID : JESSICA GALARZA / [id number] Exam Date : 01/22/2019 10:37:39 ( Approved ) Study Comment : Sex / Age : M / 63Y Creator : Dictator : Chao Grove MD International Recruiter : Bat Person : Chao Grove MD Approver2 : Report Date : My Comment : Date of service: 01/22/2019 HISTORY: f/u pna COMPARISON: Chest radiographs 01/19/2019 as well as abdomen pelvis CT 01/19/2019. TECHNIQUE: Chest PA and lateral views FINDINGS: LUNGS: Diminishing infiltrate is identified at the left chest mid inferior lung zones suggesting improved probable active infiltrates. Further review of prior lung base sections from abdomen pelvis CT 01/19/2019 indicates left upper and lower lobe involvement. PLEURA: No significant pleural effusion identified. No pneumothorax apparent. CARDIOVASCULAR: No aortic atherosclerotic calcification present. Normal cardiac size. No pulmonary vascular congestion. OSSEOUS STRUCTURES: No significant abnormalities. VISUALIZED UPPER ABDOMEN: Normal. OTHER FINDINGS: None. IMPRESSION: Improving limited infiltrates mid to inferior left lung zone Assessment and Plan (1) Gastroenteritis Status: Acute (2) Pneumonia Status: Acute - Assessment and Plan (Free Text) Assessment: A/P- 63 year old male with HTN and HLD admitted with gastroenteritis symptoms and found to have LLL pneumonia on ct. clinically improved. afebrile leukocytosis has resolved. blood cx- neg x 3 UA- negative urine cx -50,000 strep agalactae( most likely contaminant) CXR - improved as per report. mycoplasma IM- negative PLan- day #3 of ceftrixaone and zithromax. can be d/c home on augmentin 875 mg BID for 7 days. all above d/w DELICATESSEN SLICER allison and with the patient and he agrees with above plan of care.
[2019-01-22] MEDS: Enoxaparin 40 mg Syringe SC SCH (10:10)
[2019-01-22] MEDS: Azithromycin 500 MG in Sodium Chloride 0.9% 250 ML IVPB SCH (10:11)
[2019-01-22 12:30] LABS: HEMOGLOBIN 12.6 g/dL (12.0-18.0); MEAN CORPUSCULAR HEMOGLOBIN 30.5 pg (27.0-31.0); MEAN CORPUSCULAR HGB CONC 33.9 g/dL (33.0-37.0); RBC 4.14 Mil/uL (4.40-5.90); RED CELL DISTRIBUTION WIDTH 13.5 % (11.5-14.5); WHITE BLOOD COUNT 8.2 K/uL (4.8-10.8)
--- NOTE | 2019-01-22 12:51 | RAD ---
Date of service: 01/22/2019 HISTORY: f/u pna COMPARISON: Chest radiographs 01/19/2019 as well as abdomen pelvis CT 01/19/2019. TECHNIQUE: Chest PA and lateral views FINDINGS: LUNGS: Diminishing infiltrate is identified at the left chest mid inferior lung zones suggesting improved probable active infiltrates. Further review of prior lung base sections from abdomen pelvis CT 01/19/2019 indicates left upper and lower lobe involvement. PLEURA: No significant pleural effusion identified. No pneumothorax apparent. CARDIOVASCULAR: No aortic atherosclerotic calcification present. Normal cardiac size. No pulmonary vascular congestion. OSSEOUS STRUCTURES: No significant abnormalities. VISUALIZED UPPER ABDOMEN: Normal. OTHER FINDINGS: None. IMPRESSION: Improving limited infiltrates mid to inferior left lung zone.
--- NOTE | 2019-01-23 23:50 | CP.PCM.PN ---
Subjective - Date & Time of Evaluation Date of Evaluation: 01/21/19 Objective - Vital Signs/Intake and Output Vital Signs (last 24 hours): Temp Pulse Resp BP Pulse Ox 98.1 F 80 20 145/91 H 96 01/22/19 08:38 01/22/19 10:10 01/22/19 08:38 01/22/19 10:10 01/22/19 08:38 - Labs Labs: 01/22/19 12:15 01/21/19 08:10 Assessment and Plan (1) Pneumonia Status: Acute
--- NOTE | 2019-01-23 23:51 | CP.PCM.DIS ---
Provider - Provider Date of Admission: 01/19/19 10:30 Attending physician: Eliz Spears MD Primary care physician: Kelly Wheeler MD Consults: 01/19/19 20:25 Infectious Disease Consult Routine Comment: Consulting Provider: Gulshan Caruso Consulting Physician: Gulshan Caruso Reason for Consult: LLL PNA Time Spent in preparation of Discharge (in minutes): 25 Diagnosis - Discharge Diagnosis (1) Pneumonia Status: Acute Priority: High (2) Gastroenteritis Status: Acute Hospital Course - Lab Results Lab Results: Micro Results 01/20/19 15:52 Blood-Venous Blood Culture - Preliminary NO GROWTH AFTER 3 DAYS 01/20/19 15:42 Blood-Venous Blood Culture - Preliminary NO GROWTH AFTER 3 DAYS 01/20/19 14:26 Stool Stool Culture - Final NO SALMONELLA, SHIGELLA OR CAMPYLOBACTER ISOLATED. 01/19/19 07:10 Blood Blood Culture - Preliminary NO GROWTH AFTER 4 DAYS 01/20/19 14:26 Stool Ova and Parasite Concentrate Exam - Final 01/19/19 07:10 Urine Random Urine Culture - Final Strep Agalactiae Group B Most Recent Lab Values WBC 8.2 K/uL (4.8-10.8) 01/22/19 12:15 RBC 4.14 Mil/uL (4.40-5.90) L 01/22/19 12:15 Hgb 12.6 g/dL (12.0-18.0) 01/22/19 12:15 Hct 37.3 % (35.0-51.0) 01/22/19 12:15 MCV 90.0 fl (80.0-94.0) 01/22/19 12:15 MCH 30.5 pg (27.0-31.0) 01/22/19 12:15 MCHC 33.9 g/dL (33.0-37.0) 01/22/19 12:15 RDW 13.5 % (11.5-14.5) 01/22/19 12:15 Plt Count 239 K/uL (130-400) 01/22/19 12:15 MPV 8.1 fl (7.2-11.7) 01/21/19 08:10 Neut % (Auto) 82.9 % (50.0-75.0) H 01/21/19 08:10 Lymph % (Auto) 11.2 % (20.0-40.0) L 01/21/19 08:10 [place] % (Auto) 5.4 % (0.0-10.0) 01/21/19 08:10 Eos % (Auto) 0.4 % (0.0-4.0) 01/21/19 08:10 Baso % (Auto) 0.1 % (0.0-2.0) 01/21/19 08:10 Neut # (Auto) 10.7 K/uL (1.8-7.0) H 01/21/19 08:10 Lymph # (Auto) 1.4 K/uL (1.0-4.3) 01/21/19 08:10 [place] # (Auto) 0.7 K/uL (0.0-0.8) 01/21/19 08:10 Eos # (Auto) 0.0 K/uL (0.0-0.7) 01/21/19 08:10 Baso # (Auto) 0.0 K/uL (0.0-0.2) 01/21/19 08:10 Neutrophils % (Manual) 72 % (42-75) 01/19/19 07:10 Band Neutrophils % 20 % (0-2) H* 01/19/19 07:10 Lymphocytes % (Manual) 8 % (20-50) L 01/19/19 07:10 Monocytes % (Manual) TEST NOT PERFORMED 01/19/19 07:10 Platelet Estimate Normal (NORMAL) 01/19/19 07:10 Large Platelets Present 01/19/19 07:10 Giant Platelets Present 01/19/19 07:10 pO2 42 mm/Hg (30-55) 01/19/19 06:39 VBG pH 7.41 (7.32-7.43) 01/19/19 06:39 VBG pCO2 35 mmHg (40-60) L 01/19/19 06:39 VBG HCO3 23.0 mmol/L 01/19/19 06:39 VBG Total CO2 23.3 mmol/L (22-28) 01/19/19 06:39 VBG O2 Sat (Calc) 84.0 % (40-65) H 01/19/19 06:39 VBG Base Excess -1.8 mmol/L (0.0-2.0) L 01/19/19 06:39 VBG Potassium 3.3 mmol/L (3.6-5.2) L 01/19/19 06:39 Sodium 138.0 mmol/L (132-148) 01/19/19 06:39 Chloride 105.0 mmol/L (98-107) 01/19/19 06:39 Glucose 115 mg/dL (75-110) H 01/19/19 06:39 Lactate 2.2 mmol/L (0.7-2.1) H 01/19/19 06:39 FiO2 21.0 % 01/19/19 06:39 Sodium 137 mmol/l (132-148) 01/21/19 08:10 Potassium 3.5 MMOL/L (3.6-5.0) L 01/21/19 08:10 Chloride 107 mmol/L (98-107) 01/21/19 08:10 Carbon Dioxide 20 mmol/L (22-30) L 01/21/19 08:10 Anion Gap 14 (10-20) 01/21/19 08:10 BUN 11 mg/dl (9-20) 01/21/19 08:10 Creatinine 0.8 mg/dl (0.8-1.5) 01/21/19 08:10 Est GFR ( Amer) > 60 01/21/19 08:10 Est GFR (Non-Af Amer) > 60 01/21/19 08:10 Random Glucose 114 mg/dL (75-110) H 01/21/19 08:10 Lactic Acid 1.3 mmol/L (0.7-2.1) 01/19/19 11:30 Calcium 8.7 mg/dL (8.4-10.2) 01/21/19 08:10 Phosphorus 2.9 mg/dl (2.5-4.5) 01/21/19 08:10 Magnesium 2.0 MG/DL (1.6-2.3) 01/21/19 08:10 Total Bilirubin 1.0 mg/dl (0.2-1.3) 01/21/19 08:10 AST 25 U/L (17-59) 01/21/19 08:10 ALT 32 U/L (21-72) 01/21/19 08:10 Alkaline Phosphatase 65 U/L (38-126) 01/21/19 08:10 Total Protein 6.4 G/DL (6.3-8.2) 01/21/19 08:10 Albumin 3.5 g/dL (3.5-5.0) 01/21/19 08:10 Globulin 2.9 gm/dL (2.2-3.9) 01/21/19 08:10 Albumin/Globulin Ratio 1.2 (1.0-2.1) 01/21/19 08:10 Lipase 154 U/L (23-300) 01/19/19 07:10 Venous Blood Potassium 3.3 mmol/L (3.6-5.2) L 01/19/19 06:39 Urine Color Yellow (YELLOW) 01/19/19 07:10 Urine Clarity Clear (Clear) 01/19/19 07:10 Urine pH 6.0 (5.0-8.0) 01/19/19 07:10 Ur Specific [place] 1.017 (1.003-1.030) 01/19/19 07:10 Urine Protein Negative mg/dL (NEGATIVE) 01/19/19 07:10 Urine Glucose (UA) 50 mg/dL (NEGATIVE) 01/19/19 07:10 Urine Ketones Trace mg/dL (NEGATIVE) 01/19/19 07:10 Urine Blood Negative (NEGATIVE) 01/19/19 07:10 Urine Nitrate Negative (NEGATIVE) 01/19/19 07:10 Urine Bilirubin Negative (NEGATIVE) 01/19/19 07:10 Urine Urobilinogen 0.2-1.0 mg/dL (0.2-1.0) 01/19/19 07:10 Ur Leukocyte Esterase Neg Tracee/uL (Negative) 01/19/19 07:10 Urine RBC (Auto) < 1 /hpf (0-3) 01/19/19 07:10 Urine Microscopic WBC 1 /hpf (0-5) 01/19/19 07:10 Mycoplasma pneumon IgM Negative (NEGATIVE) 01/20/19 15:42 Discharge Exam - Head Exam Head Exam: ATRAUMATIC Discharge Plan - Discharge Medications Prescriptions: Amoxicillin/Clavulanate [Augmentin 875 MG-125 MG] 1 tab PO Q12 #14 tab - Follow Up Plan Condition: STABLE Disposition: HOME/ ROUTINE Instructions: Pneumonia, Adult (DC), Viral Gastroenteritis, Adult (DC) Additional Instructions: follow up with on tuesday01/29/19 1:00pm Referrals: Kelly Wheeler MD [Primary Care Provider] - Eliz Spears MD [Staff Provider] -
== END 2019-01-22 15:00 | disposition home or self-care (01) | DRG 195 ==
LOC: H.ER 05:38 → H.ERHOLD 10:30 → H.MEDSURG1 18:33
PROVIDERS: ADMIT Internal Medicine; ATTEND Internal Medicine
DX: J18.1 Lobar pneumonia, unspecified organism (principal); K52.9 Noninfective gastroenteritis and colitis, unspecified; B95.1 Streptococcus, group B, as the cause of diseases classified elsewhere; I10 Essential (primary) hypertension; E78.5 Hyperlipidemia, unspecified; E78.00 Pure hypercholesterolemia, unspecified; D72.828 Other elevated white blood cell count; N28.1 Cyst of kidney, acquired